=== PATIENT | female | born 1975 | race Caucasian/White ===

== ENCOUNTER → 2018-12-27 | Outpatient (CLI) | payer BC ==
[~2018-12-27] MED LIST: AMIT25 PO; GEMF600 PO
== END | disposition home or self-care (01) ==
LOC: LAB EV 10:00 → LAB SHORT 10:00
DX: N39.0 Urinary tract infection, site not specified (principal)
CPT/HCPCS: 87077; 87086; 87186

== ENCOUNTER → 2019-06-11 | Outpatient (CLI) | payer BC | END | disposition home or self-care (01) | LOC: LAB EV 10:24 → LAB SHORT 10:24 | DX: N39.0 Urinary tract infection, site not specified (principal) | CPT/HCPCS: 87077; 87086; 87186 ==